=== PATIENT | female | born 1980 | race African-American/Black ===

== ENCOUNTER 2019-07-27 14:29 | Observation (INO) ==
[2019-07-27] MEDS ORDERED: HYDROmorphone 2 MG/1 ML VIAL IV STA (15:04)
[2019-07-27] MEDS ORDERED: ONDANSETRON 4 MG/2 ML VIAL IV STA (15:04)
[2019-07-27 16:14] LABS: Basophils % 0.3 % (0.0-0.8); Eosinophils # 0.3 10*3/uL (0.0-0.87); Eosinophils % 2.8 % (0.00-10.9); Hematocrit 40.8 VOL% (35.7-47.0); Hemoglobin 13.3 GM/DL (12.0-16.0); Immature Granulocytes % 0.3 %; Immature Granulocytes Absolute 0.03 #; Lymphocytes # 1.9 10*3/uL (1.4-4.0); Lymphocytes % 15.6 % (21.3-54.2); Mean Corpuscular HGB Conc 32.6 GM/DL (32-36); Mean Corpuscular Volume 90.1 FL (87-102); Mean Platelet Volume 9.4 FL (9.6-12.0); Monocytes % 6.6 % (1.7-12.7); Neutrophils % 74.4 % (38.7-73.9); Platelet Count 327 T/CUMM (130-400); Red Blood Count 4.53 MC/CUMM (3.8-5.5); Red Cell Distribution Width 13.6 % (9.3-17.3); White Blood Count 11.9 T/CUMM (4-12)
[2019-07-27 16:31] LABS: Apearance,Urine CLEAR (Clear); Bilirubin,Urine Negative (Negative); Blood, Urine Negative (Negative); Glucose,Urine (UA) Negative (Negative); Ketones,Urine 80 mg/dL (Negative); Mucus,Urine Occasional /LPF (Occasional); Nitrite,Urine Negative (Negative); Protein,Urine Negative; RBC,Urine 6 /HPF (0-4); Squamous Epithelial Cell,Urine Occasional /HPF (0-10); Urine Color Yellow (Yellow); Urine Specific Gravity 1.021 (1.001-1.035); Urine Urobilinogen < 2.0 EU/DL (0.2-1.0); WBC,Urine 5 /HPF (0-6)
[2019-07-27 16:51] LABS: Albumin 3.7 G/DL (3.4-5.0); Bilirubin,Total 0.5 MG/DL (0.2-1.0); Calcium 8.6 MG/DL (8.5-10.1); Osmolality,Calculated 270.8 MOS/KG (273-304); Total Protein 7.8 G/DL (6.4-8.3)
[2019-07-27] MEDS ORDERED: ACETAMINOPHEN 325 MG TABLET PO PRN (19:48)
[2019-07-27] MEDS ORDERED: PROMETHAZINE 25 MG/1 ML VIAL IM PRN (19:48)
[2019-07-27] MEDS ORDERED: POTASSIUM CHLORIDE 20 MEQ TABLET PO ONE (19:48)
[2019-07-27] MEDS ORDERED: diphenhydrAMINE CAP 25 MG CAPSULE PO PRN (19:48)
[2019-07-27] MEDS ORDERED: KETOROLAC 15 MG/1 ML VIAL IV PRN (19:48)
[2019-07-27] MEDS: HYDROmorphone 2 MG/1 ML VIAL IV PRN (20:20)
[2019-07-27] MEDS: LACTATED RINGERS 1,000 ML IV SCH (20:23)
[2019-07-28] MEDS: HYDROmorphone 2 MG/1 ML VIAL IV PRN ×6 (02:32→21:57)
[2019-07-28] MEDS: LACTATED RINGERS 1,000 ML IV SCH ×4 (05:13→20:10)
[2019-07-28] MEDS ORDERED: INDOCYANINE GREEN 25 MG VIAL IV ONE (06:00)
[2019-07-28] MEDS ORDERED: CLINDAMYCIN INJ 900 MG in PREMIX 1 EACH IV ONE (06:00)
[2019-07-28 06:07] LABS: Osmolality,Calculated 266.2 MOS/KG (273-304)
[2019-07-28] MEDS ORDERED: TISSUE ADHESIVE 1 EACH APPLICATOR TOP ONE (09:16)
[2019-07-28] MEDS ORDERED: LIDOCAINE 1%/EPI INJ 20 ML VIAL ONE (09:16)
[2019-07-28] MEDS ORDERED: SUGAMMADEX 200 MG/2 ML VIAL IV ONE (11:00)
[2019-07-28] MEDS ORDERED: ONDANSETRON 4 MG/2 ML VIAL ONE ×2 (12:18→12:33)
[2019-07-28] MEDS ORDERED: HYDROmorphone 2 MG/1 ML VIAL ONE (12:18)
[2019-07-28] MEDS ORDERED: ONDANSETRON 4 MG/2 ML VIAL IV PRN (12:30)
[2019-07-28] MEDS ORDERED: LABETALOL 100 MG/20 ML VIAL IV ONE ×2 (12:30→12:44)
[2019-07-28] MEDS ORDERED: LIDOCAINE 2% 5 ML VIAL ONE (12:31)
[2019-07-28] MEDS ORDERED: propofoL 200 MG/20 ML VIAL IV ONE (12:31)
[2019-07-28] MEDS ORDERED: fentaNYL 100 MCG/2 ML VIAL ONE ×3 (12:32→12:43)
[2019-07-28] MEDS ORDERED: DESFLURANE 1 UNIT/15 MINUTE INH ONE (12:32)
[2019-07-28] MEDS ORDERED: ROCURONIUM 100 MG/10 ML VIAL IV ONE (12:33)
[2019-07-28] MEDS ORDERED: PHENYLEPHRINE 1 MG/10 ML SYRINGE IV ONE (12:33)
[2019-07-28] MEDS ORDERED: LACTATED RINGERS 1,000 ML IV ONE (12:33)
[2019-07-28] MEDS ORDERED: SUCCINYLCHOLINE 200 MG/10 ML VIAL ONE (12:33)
[2019-07-28] MEDS ORDERED: MIDAZOLAM 2 MG/2 ML VIAL ONE (12:33)
[2019-07-28] MEDS ORDERED: DEXAMETHASONE 4 MG/1 ML VIAL ONE (12:33)
[2019-07-28] MEDS ORDERED: fentaNYL 100 MCG/2 ML VIAL IV ONE (12:43)
[2019-07-28] MEDS ORDERED: ENOXAPARIN 40 MG/0.4 ML SYRINGE SUBCUT SCH (12:49)
[2019-07-28] MEDS: PANTOPRAZOLE 40 MG TABLET PO SCH (14:09)
[2019-07-28] MEDS: ONDANSETRON 4 MG/2 ML VIAL IV PRN ×2 (14:09→20:10)
[2019-07-29] MEDS: HYDROmorphone 2 MG/1 ML VIAL IV PRN (03:51)
[2019-07-29] MEDS: LACTATED RINGERS 1,000 ML IV SCH ×2 (03:54→11:09)
[2019-07-29 07:44] VITALS: BP 122/70
[2019-07-29] MEDS: PANTOPRAZOLE 40 MG TABLET PO SCH (08:30)
== END 2019-07-29 10:07 | disposition home or self-care (01) ==
LOC: N.ED 14:29 → N.EDINP 14:29 → N.3E 19:29
PROVIDERS: ADMIT Surgery; ATTEND Surgery
PROC: LAPCHOL (2019-07-28 09:44)